=== PATIENT | female | born 1990 | race Caucasian/White ===

== ENCOUNTER 2016-03-14 16:52 | Emergency (ER) ==
[2016-03-14 17:02] VITALS: BP 124/80; TEMP 97.8; BMI 41.6
[2016-03-14] MEDS ORDERED: ZOFRAN 4 MG/2 ML IVP STA (17:04)
[2016-03-14] MEDS ORDERED: MORPHINE 2 MG/ML SYRINGE IVP STA (17:04)
[2016-03-14] MEDS ORDERED: SODIUM CHLORIDE 1,000 ML IV STA (17:04)
[2016-03-14 17:23] LABS: BASOPHILS # (AUTO) 0.1 K/uL (0-0.2); BASOPHILS % (AUTO) 0.8 % (0.0-3.0); EOSINOPHILS # (AUTO) 0.6 K/ul (0.0-0.7); EOSINOPHILS % (AUTO) 4.3 % (0.0-7.0); HEMATOCRIT 42.2 % (37.0-47.0); IMMATURE GRANULOCYTE % (AUTO) 0.4 % (0.0-5.0); LYMPHOCYTES # (AUTO) 3.4 K/uL (0.60-3.4); LYMPHOCYTES % (AUTO) 26.7 (10.0-50.0); MEAN CORPUSCULAR HEMOGLOBIN 28.6 pg (27.0-31.0); MEAN CORPUSCULAR HGB CONC 33.2 (31.8-35.4); MEAN CORPUSCULAR VOLUME 86.1 fl (81.0-99.0); MONOCYTES # (AUTO) 0.6 K/uL (0.4-2.0); MONOCYTES % (AUTO) 4.8 (0-10); NEUTROPHILS # (AUTO) 8.1 K/ul (2.0-6.9); PLATELET COUNT 287 10^3/uL (140-440); WHITE BLOOD COUNT 12.88 K/ul (4.6-10.2)
[2016-03-14 17:26] LABS: BILIRUBIN,URINE Negative (NEGATIVE); KETONES,URINE Negative (NEGATIVE); LEUKOCYTE ESTERASE ,URINE Negative (NEGATIVE); NITRITE,URINE Negative (NEGATIVE); PROTEIN,URINE Negative (NEGATIVE); URINE, BLOOD 2+ (NEGATIVE)
[2016-03-14 17:29] LABS: ADD URINE MICROSCOPIC YES
[2016-03-14 17:30] LABS: BACTERIA,URINE 2+ (NOT PRESENT); URINE PREGNANCY INTERNAL QC INTERNAL QC VALID
[2016-03-14 17:45] LABS: ALBUMIN 3.8 g/dL (3.4-5.0); ALBUMIN/GLOBULIN RATIO 1.15; BILIRUBIN,TOTAL 0.5 mg/dL (0.00-1.20); BUN/CREATININE RATIO 10.71; CALCIUM 9.5 mg/dL (8.2-10.2); CREATININE 0.84 mg/dL (0.60-1.30); TOTAL PROTEIN 7.1 g/dL (6.4-8.2)
--- NOTE | 2016-03-14 18:25 | ED.PDOC ---
[id number]: jose been hurting for 2 days on the right side Time Seen by Physician: 16:55 Mode of Arrival: Wheelchair Information Source: Patient Exam Limitations: No limitations Nursing and Triage Documentation Reviewed and Agree: Yes GI Complaint Exam - Abdominal Pain Complaint/Exam Onset: Gradual Duration: 2 days Symptoms Are: Still present Timing: Intermittent Initial Severity: Mild Current Severity: Mild Location of Pain: Discrete, RLQ Character: Reports: Dull, Aching Aggravating: Reports: None Alleviating: Reports: None Associated Signs and Symptoms: Reports: Nausea. Denies: Diaphoresis, Fever, Cough, Chest pain, Dizziness, Back pain, Constipation, Blood in stool, Dysuria, Urinary frequency, Decreased urine output, Decreased appetite, Vaginal bleeding , Vaginal discharge, Vomiting, Diarrhea, Sore throat, Decreased activity AAA Risk Factors: Reports: None Cardiac Risk Factors: Reports: None Ectopic Risk Factors: Reports: None Ovarian Torsion Risk Factors: Reports: Reproductive age Surgical Obstruction Risk Factors: Reports: None Related Surgical History: Reports: Cholecystectomy Patient Rh Status: Unknown Abdominal Findings: Present: None Differential Diagnoses: Constipation, Pancreatitis, Renal Colic, Ureteral Stone , UTI, , Ovarian Cyst, PID Review of Systems - Review Of Systems Constitutional: Reports: No symptoms Eyes: Reports: No symptoms Ears, Nose, Mouth, Throat: Reports: No symptoms Respiratory: Reports: No symptoms Cardiac: Reports: No symptoms GI: Reports: Abdominal pain, Nausea : Reports: No symptoms Musculoskeletal: Reports: No symptoms Skin: Reports: No symptoms Neurological: Reports: No symptoms Endocrine: Reports: No symptoms Hematologic/Lymphatic: Reports: No symptoms All Other Systems: Reviewed and Negative Past Medical History - Past Medical History Endocrine: Reports: Unknown Cardiovascular: Reports: Unknown Respiratory: Reports: Unknown Hematological: Reports: Unknown Gastrointestinal: Reports: Unknown Genitourinary: Reports: Unknown Neuro/Psych: Reports: Unknown Musculoskeletal: Reports: Unknown Cancer: Reports: None Last Menstrual Period: 1 week ago - Surgical History General Surgical History: Reports: Unknown - Family History Family History: Reports: Unknown - Social History Smoking Status: Current every day smoker, Heavy tobacco smoker Hx Substance Use: No Alcohol Screening: None Lives: With family Physical Exam - Physical Exam Appearance: Well-appearing, No pain distress, Well-nourished Pain Distress: Mild Eyes: MAY ENT: Ears normal, Nose normal, Oropharynx normal Neck: Supple Respiratory: Airway patent, Breath sounds clear, Breath sounds equal, Respirations nonlabored Cardiovascular: RRR, Pulses normal, No rub, No murmur GI/: Soft Musculoskeletal: Normal strength Skin: Warm, Dry, Normal color Neurological: Sensation intact, Motor intact, Reflexes intact, Cranial nerves intact, Alert, Oriented Psychiatric: Affect appropriate, Mood appropriate Interpretation - Radiology Interpretation Radiology Interpretation By: Radiologist Radiology Results: Positive Exam Interpreted: CT Scan Re-Evaluation - Re-Evaluation Time of Re-Evaluation: 18:42 Status: Improved Vital Signs Stable: Yes Pain Level: 1 Appearance: NAD Lungs: Clear Skin: Warm and Dry Neuro: Alert and Oriented X3 CV: RRR Critical Care Note - Critical Care Note Total Time (mins): 0 Course - Course Hematology/Chemistry: 03/14/16 17:15 03/14/16 17:15 Orders, Labs, Meds: Lab Review 03/14/16 17:15 WBC 12.88 H RBC 4.90 Hgb 14.0 Hct 42.2 MCV 86.1 MCH 28.6 MCHC 33.2 RDW Coeff of [place] 12.8 Plt Count 287 Immature Gran % (Auto) 0.4 Neut % (Auto) 63.0 Lymph % (Auto) 26.7 [place] % (Auto) 4.8 Eos % (Auto) 4.3 Baso % (Auto) 0.8 Immature Gran # (Auto) 0.1 Neut # 8.1 H Lymph # 3.4 Emmons # 0.6 Eos # 0.6 Baso # 0.1 Sodium 140 Potassium 4.0 Chloride 103 Carbon Dioxide 26 Anion Gap 15.0 BUN 9 Creatinine 0.84 Estimated GFR (MDRD) 83.00 BUN/Creatinine Ratio 10.71 Glucose 78 Calcium 9.5 Total Bilirubin 0.50 AST 19 ALT 18 Alkaline Phosphatase 82 Total Protein 7.1 Albumin 3.8 Globulin 3.3 Albumin/Globulin Ratio 1.15 Amylase 32 Lipase 14 Urine Color Yellow Urine Clarity Clear Urine pH 6.0 Ur Specific [place] >=1.030 Urine Protein Negative Urine Glucose (UA) Negative Urine Ketones Negative Urine Blood 2+ Urine Nitrite Negative Urine Bilirubin Negative Urine Urobilinogen 0.2 Ur Leukocyte Esterase Negative Urine Microscopic RBC 5-10 Ur Squamous Epith Cells 10-20 Urine Bacteria 2+ Urine Test Negative Orders Category Date Time Status NPO REMINDER: IMAGING ONCE CARE 03/14/16 17:05 Completed IV [ED IV/MEDIPORT/POWERPORT] .ONCE EMERGENCY 03/14/16 17:04 Active AMYLASE Stat LAB 03/14/16 17:15 Completed CBC W/ AUTO DIFF Stat LAB 03/14/16 17:15 Completed COMPREHENSIVE METABOLIC PANEL Stat LAB 03/14/16 17:15 Completed LIPASE Stat LAB 03/14/16 17:15 Completed URINALYSIS C & S IF INDICATED Stat LAB 03/14/16 17:15 Completed URINE CULTURE Routine LAB 03/14/16 17:31 Completed URINE Stat LAB 03/14/16 17:15 Completed 0.9 % Sodium Chloride [Saline Flush] MEDS 03/14/16 17:04 Discontinued 1 syr IVF PRN PRN Morphine Sulfate [Morphine 2 mg/ml Syringe] MEDS 03/14/16 17:04 Discontinued 2 mg IVP ONCE STA Ondansetron HCl/Pf [Zofran 4 mg/2 ml] MEDS 03/14/16 17:04 Discontinued 4 mg IVP ONCE STA Sodium Chloride 0.9% [Sodium Chloride] 1,000 ml MEDS 03/14/16 17:04 Discontinued IV 100 mls/hr CT ABDOMEN/PELVIS W/WO CONTRAS Stat RADS 03/14/16 17:05 Completed Medications Discontinued Medications Generic Name Dose Route Start Last Admin Trade Name Freq PRN Reason Stop Dose Admin Sodium Chloride 1,000 mls @ 100 mls/hr 03/14/16 17:04 03/14/16 17:35 Sodium Chloride IV 03/15/16 03:03 100 mls/hr .Q10H STA Administration Morphine Sulfate 2 mg 03/14/16 17:04 03/14/16 17:35 Morphine 2 Mg/Ml Syringe IVP 03/14/16 17:05 Not Given ONCE STA Ondansetron HCl 4 mg 03/14/16 17:04 03/14/16 17:35 Zofran 4 Mg/2 Ml IVP 03/14/16 17:05 Not Given ONCE STA Sodium Chloride 1 syr 03/14/16 17:04 03/14/16 17:35 Saline Flush IVF 1 syr PRN PRN Administration To flush IV Vital Signs: Temp Pulse Resp BP Pulse Ox 03/14/16 16:53 97.8 F 74 18 124/80 96 Departure - Departure Time of Disposition: 18:42 Disposition: HOME SELF-CARE Discharge Problem: UTI (urinary tract infection), Umbilical hernia Instructions: Urinary Tract Infection in Women (ED) Condition: Good Pt referred to PMD for follow-up: Yes Additional Instructions: bactrim ds bid x 7days--f/u with clinic to discuss referral for hernia Allergies/Adverse Reactions: Allergies amoxicillin trihydrate [From Augmentin] Adverse Reaction (Verified 03/14/16 16: 57) levofloxacin [From Levaquin] Adverse Reaction (Verified 03/14/16 16:57) Penicillins Adverse Reaction (Verified 03/14/16 16:57) potassium clavulanate [From Augmentin] Adverse Reaction (Verified 03/14/16 16:57 ) vancomycin Adverse Reaction (Verified 03/14/16 16:57) levaquil Adverse Reaction (Uncoded 11/26/12 15:23) Home Medications: Ambulatory Orders 1 [No Reported Medications] 03/14/16 Disposition Discussed With: Patient, Family
--- NOTE | 2016-03-14 18:32 | CT ---
Exam: CT of the abdomen and pelvis without and with contrast History: Right lower quadrant pain Technique: [address] of the abdomen pelvis without and with intravascular contrast FINDINGS: The lung bases are clear. No significant liver abnormality. The adrenals, pancreas and spl een are unremarkable. The stomach and hiatus are unremarkable. Prior cholecystectomy. The appendix is normal. Bowel loops demonstrate normal caliber. No inflamatory change seen in the mesentery or re troperitoneum. Fatty umbilical hernia with 3 cm defect and no complicating features. Vascular struc tures appear normal. Pelvic genitourinary structures appear normal. Pelvic bowel loops are unremarkable. No inflammatory change in the pelvic fat. No acute abnormality of the abdominal or pelvic skeleton. Impression: 1. No inflammatory process, bowel or urinary obstruction is seen. No acute findings of the abdomen or pelvis.
== END 2016-03-14 18:50 | disposition home or self-care (01) ==
LOC: ED 16:52
DX: N39.0 Urinary tract infection, site not specified (principal); K42.9 Umbilical hernia without obstruction or gangrene; F17.210 Nicotine dependence, cigarettes, uncomplicated
CPT/HCPCS: 36415; 80053; 81001; 81025; 82150; 83690; 85025; 87086; 96360; 96361; 99283

== ENCOUNTER 2016-06-13 16:46 | Emergency (ER) ==
[2016-06-13 16:55] VITALS: BP 102/65; TEMP 99.1; BMI 41.3
--- NOTE | 2016-06-13 17:19 | ED.PDOC ---
General ED Provider: Dr. HUMPHREY OVALLES JR Chief Complaint: Wrist Pain/Injury Stated Complaint: loading a cart at work and heard crunch to left wrist with no pain--was only numb--today pain is in wrist--hurts to use --no deformity noted. [ End ]99.1 69 20 96% 102/65 06/18 Time Seen by Physician: 17:18 Mode of Arrival: Walk-In Information Source: Patient, Family Exam Limitations: No limitations Primary Care Provider: ROOSEVELT CARRENO Nursing and Triage Documentation Reviewed and Agree: No Review of Systems - Review Of Systems Constitutional: Reports: No symptoms Eyes: Reports: No symptoms Ears, Nose, Mouth, Throat: Reports: No symptoms Respiratory: Reports: No symptoms Cardiac: Reports: No symptoms GI: Reports: No symptoms : Reports: No symptoms Musculoskeletal: Reports: Joint pain (crepitance left wrist now painful ) Neurological: Reports: No symptoms Endocrine: Reports: No symptoms Hematologic/Lymphatic: Reports: No symptoms All Other Systems: Other Past Medical History - Past Medical History Endocrine: Reports: Hypothyroid, Unknown Cardiovascular: Reports: Unknown Respiratory: Reports: Unknown Hematological: Reports: Unknown Gastrointestinal: Reports: Unknown Genitourinary: Reports: Unknown Neuro/Psych: Reports: Seizure, Unknown Musculoskeletal: Reports: Unknown Cancer: Reports: None Last Menstrual Period: 3 weeks ago - Surgical History General Surgical History: Reports: Cholecystectomy, Unknown - Family History Family History: Reports: Unknown - Social History Smoking Status: Current every day smoker, Heavy tobacco smoker Hx Substance Use: No Alcohol Screening: None Physical Exam - Physical Exam Appearance: Well-appearing, Obese Pain Distress: Moderate Neck: Supple Respiratory: Airway patent Musculoskeletal: Normal strength, ROM intact, No calf tenderness, Edema ( tenderness left wrist over proximal carpals and radius and ulna slight tenderness left humerus-no focal crepitance minimal edema) Skin: Warm, Dry, Normal color Neurological: Sensation intact, Motor intact, Reflexes intact, Cranial nerves intact, Alert, Oriented Critical Care Note - Critical Care Note Total Time (mins): 0 Course - Course Orders, Labs, Meds: Orders Category Date Time Status Spica splint [ED SPLINT APPLICATION] .ONCE EMERGENCY 06/13/16 18:28 Active WRIST, LEFT 3 VIEWS Stat RADS 06/13/16 17:18 Completed Vital Signs: Temp Pulse Resp BP Pulse Ox 06/13/16 16:47 99.1 F 69 20 102/65 96 Departure - Departure Time of Disposition: 18:28 Disposition: HOME SELF-CARE Discharge Problem: Wrist strain Instructions: Wrist Injury (ED) Condition: Good Pt referred to PMD for follow-up: Yes Additional Instructions: recheck one week PMD may use ultram for pain wrist splint for comfort expect resolution over two weeks Prescriptions: Tramadol HCl [Ultram] 50 mg PO Q6H PRN #14 tablet PRN Reason: PAIN Allergies/Adverse Reactions: Allergies amoxicillin trihydrate [From Augmentin] Adverse Reaction (Verified 06/13/16 16: 55) levofloxacin [From Levaquin] Adverse Reaction (Verified 06/13/16 16:55) Penicillins Adverse Reaction (Verified 06/13/16 16:55) potassium clavulanate [From Augmentin] Adverse Reaction (Verified 06/13/16 16:55 ) vancomycin Adverse Reaction (Verified 06/13/16 16:55) Home Medications: Ambulatory Orders Tramadol HCl [Ultram] 50 mg PO Q6H PRN #14 tablet 06/13/16
--- NOTE | 2016-06-13 17:56 | DI ---
EXAM: Left wrist three-view HISTORY: Pain, crepitance COMPARISON: None FINDINGS: The bones are normal. The joints are normal. No focal soft tissue abnormality. IMPERSSION: Normal examination.
== END 2016-06-13 18:45 | disposition home or self-care (01) ==
LOC: ED 16:46
DX: S66.912A Strain of unspecified muscle, fascia and tendon at wrist and hand level, left hand, initial encounter (principal); X50.9XXA Other and unspecified overexertion or strenuous movements or postures, initial encounter; Y99.0 Civilian activity done for income or pay; F17.210 Nicotine dependence, cigarettes, uncomplicated
CPT/HCPCS: 99282